=== PATIENT | male | born 1935 | race Caucasian/White ===

== ENCOUNTER 2020-08-15 07:48 | Day surgery (SDC) | payer OTHER ==
[~2020-08-15] VITALS: Ht 167.6 cm
[2020-08-15] VITALS (7 sets, daily range): BP systolic 115–153; BP diastolic 68–84
[~2020-08-15 07:48] MED LIST: ALLEGRA180 MG PO; ARTIFICIAL TEAR1510 OPHTHALMIC; ASPIRIN325 PO; BUTALB-APAP-CA1 EACH PO; FOLIC ACID1 MG PO; FUROSEMIDE 40 M40 MG PO; HYDROCODON-ACE1 EAC7 PO; IMODIUM A-D2 MG PO; LISINOPRIL-HCT1 EACH; METOPROLOL SUCC50 MG PO; MULTIVITAMINS PO; MUSCLE RUB CRE113 G1 TOP; POTASSIUM20 PO; PRAVASTATIN SOD40 MG PO; SENNA PLUS TAB1 EACH PO; SUPER B-COMPLE1 EAC2 PO; TRAZODONE HCL50 MG PO; TUSSIN COU15 MG/5 ML PO; TYLENOL325 M1 PO; VITAMIN B-1100 M2 PO; VITAMIN B125000 MCG PO; VITAMIN C 250250 MG PO; VITAMIN C500 M2 PO; VITAMIN D400 UNI1 PO; ZYRTEC10 M5 PO
--- NOTE | 2020-08-15 17:22 | NUR ---
ASSUMED CARE AT 1650. VSS. IV IS INTACT AND SHOW NO SIGNS OF REDNESS OR SWELLING. INCONTINENT. HOB IS ELEVATED. INCISION ON FACE IS DRY CLEAN AND INTACT. GUERA DRAIN IS INTACT. PT TENDS TO TRY TO PULL GUERA DRAIN AND WILL CONTINUE TO MONITOR. CALL LIGHT WITHIN REACH. FALL PRECAUTION . A&O X3. SCD HOSE ARE IN PLACE. 2 LITER OF OYXGEN. ICE PACK PLACED ON LEFT CHECK.
--- NOTE | 2020-08-16 04:30 | NUR ---
RECEIVED CARE OF THIS PATIENT AT 1900. ALERT AND ORIENTED TO PERSON, PLACE AND SITUATION AND SOMETIMES TIME. CONFUSED AT TIMES. INCISION ON L CHEEK WITH EDGES WELL APPROXIMATED. DRAINING SM AMOUNTS OF BLOOD. DOES OT LIKE IT TO BE TOUCHED. GUERA DRAIN BEHIND L EAR. ICE APPLIED TO CHEEK WHEN HE WANTS IT. PATIENT YELLING BECAUSE HE DOES NOT LIKE THIS HOSPITAL. C/O PAIN, MED GIVEN. WANTED IV OUT, EXPLAINED HE NEEDED IT. HAS TWO IV'S, ONE R WRIST AND THE OTHER R HAND.SLEPT OFF AND ON DURING NIGHT.
[2020-08-16 07:29] VITALS: BP 104/55
[2020-08-16 08:21] VITALS: BP 104/55
--- NOTE | 2020-08-16 08:35 | NUR ---
assumed care at 0700. pt is a&o x3-4. pt is very fussy. pt refused all medications except for pain medication for his headache. pt yelled and states that he has a right to refuse all medications after being explained the benefit of each pill. daughter called and spoken with her with his update. d/c today back to facility according to daughter. bp is 103 but pt is alert and awake. ice pack to face. HOB 30 degree. fall precaution. call light within reach. iv is d/c as pt refused to have iv on him. 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 scd hose are in place. will continue to monitor.
--- NOTE | 2020-08-16 10:35 | NUR ---
ASSESSMENT: CM REVIEWED CHART AND SPOKE WITH PATIENT. PT IS LTC RESIDENT AT [facility]. PT REPORTS THAT HE NORMALLY USES A WHEELCHAIR OR WALKER TO AMBULATE. PT HAD EXCISION OF CHEEK LESION AND IS STABLE TO DISCHARGE TODAY BACK TO FACILITY. CM SPOKE WITH HIPOLITO WRIGHT AT [facility] TO NOTIFY HER OF DISCHARGE TODAY AND FAXED ORDERS TO HER [phone] AND CONFIRMED THEY RECEIVED IT. TRANSPORTATION HAS BEEN ARRANGED FOR 1500. CM NOTIFIED PT, PTS DAUGHTER GOLDY, WELL BEDSIDE RN. BEDSIDE RN HAS THE CONTACT NUMBER FOR REPORT. CHART COPY WAS ORDERED. PT REPORTS NO FURTHER NEEDS FROM CM AT THIS TIME.
--- NOTE | 2020-08-16 11:45 | O ---
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 PROCEDURES PERFORMED: 1. Excision left cheek lesion, malignant, more than 5 cm. 2. Left superficial parotidectomy with facial nerve dissection and preservation. 3. Facial nerve monitoring x2 hours. 4. Left cheek adjacent tissue transfer flap reconstruction more than 15 cm2. ANESTHESIA: General. COMPLICATIONS: None. ESTIMATED BLOOD LOSS: 50 mL. SPECIMEN: Left cheek lesion and left superficial parotid gland. ASSISTANTS: None. INDICATIONS FOR THE PROCEDURE: The patient is an 85-year-old gentleman with an approximate 1-year history of a left cheek lesion that has been increasing in size. He was first seen by Dr. Noah Jones and referred to me for formal excision and evaluation for possible lymph node dissection versus parotidectomy. He was evaluated and the decision was made to move forward with the procedures as listed above after he and his daughter signing consent in the office. The size of the lesion was approximately 5 x 4 cm and full thickness. DESCRIPTION OF PROCEDURE: The patient was identified in the preoperative area before being transported to the operating room and placed supine on the operating table. At this point, general endotracheal anesthesia was induced and a timeout was called to ensure patient identity and procedure to be performed. [address] [address] OPERATIVE REPORT Name: STEVEN LOPES Room #: 436-P [facility].#: [id number] Admission: 08/15/20 Attend Phys: Jonathan Underwood MD Discharge: Date of : 35 Report #: [id number] First, the facial nerve monitor was setup and electrodes were placed in the left lateral superior brow and the left lower lip. These were taped into position and confirmed on the monitor to be working. Next, using the Neoprobe, I isolated the likely location of the sentinel lymph node, which was located within the left parotid gland. Therefore, no markings were made on the skin surface. At this point, the lesion was observed and skin markings were made leaving approximately 10-12 mm cuff of normal appearing skin around the periphery of the lesion. This was injected locally with 1% lidocaine with 1:100,000 epinephrine solution. In addition, a left modified Nicola incision was formed around the patient's left ear and again the skin was injected with 1% lidocaine with 1:100,000 epinephrine solution. At this point, the patient was then prepped and draped in the normal sterile fashion and the table was rotated 90 degrees. Starting first with the patient's lesion, a sharp skin incision was made with a #15 blade down to the subcutaneous plane. This lesion was marked at the 12 o'clock, 3 o'clock, 6 o'clock, and 9 o'clock positions with marking stitches and then sharply excised using a #15 blade scalpel and passed off for frozen section analysis. Hemostasis was achieved in the wound base with bipolar cautery. Turning attention then to the left parotid gland, the Nicola incision was made sharply with a #15 blade and hemostasis was achieved using a monopolar cautery. The dissection was continued down through the subcutaneous plane down to the level of this mass and a subcutaneous skin flap was raised anteriorly to the anterior border of the parotid gland. Next, the SMAS was incised separately and a SMAS flap was then formed. This again was elevated out to the anterior surface of the parotid gland. Next, the tragal pointer and sternocleidomastoid and posterior bellies of digastric were sharply dissected. This actually revealed the main trunk of the facial nerve extremely easily and very quickly. There was very little bleeding encountered. This was then followed in a standard fashion medially along the main trunk of the nerve and its upper and lower divisions. The soft tissue was elevated with a mosquito clamp and then divided using Harmonic scalpel at a setting of 4 and 6. This was performed along all nerve branches until the entire superficial lobe of the parotid gland was removed entirely and passed off for permanent specimen. There was a large pumping vessel noted just deep to the proximal portion of the upper branch. This was crossclamped, divided and tied with a 2-0 silk stitch. Hemostasis was further achieved using bipolar cautery. At this point, a round Telly a 15-Pu[place]ican drain was inserted through the skin of the postauricular area and then laid down into the wound bed and placed on bulb suction. This mass was then reapproximated using 3-0 Vicryl stitches followed by skin closure in the subcutaneous plane again using a 3-0 Vicryl along with a small amount of skin trimming and the skin was then reapproximated using running 4-0 chromic. This completed the left parotidectomy. Please note that the nerve branch stimulated throughout the entirety and there was no obvious damage to any of the nerve branches. Next, attention was turned back to the medial cheek lesion. At this point, the frozen section analysis had been performed and the margins were all clear of any invasive carcinoma. Therefore, no additional margins were needed [facility] [address] [place] [address] OPERATIVE REPORT Name: STEVEN LOPES Room #: 436-P [facility]..#: [id number] Admission: 08/15/20 Attend Phys: Jonathan Underwood MD Discharge: Date of : 35 Report #: [id number] to be taken. At this point, I decided to do a rotational flap based on the patient's left nasolabial fold and recruiting skin from the inferior aspect of the defect. This was injected locally with 1% lidocaine with 1:100,000 epinephrine solution and elevated in the subcutaneous plane down to approximately the level of the mandibular body. Extreme caution was taken to stay in the immediate subcutaneous plane. Hemostasis was achieved and the flap was rotated and advanced up into the patient's medial cheek defect with extreme ease. These deep layers were closed with 3-0 Vicryl sutures and again the skin edges were closed with 4-0 chromic in a running locking fashion. This completed the procedure. I was very pleased with the functional and cosmetic outcomes. The patient was reversed from anesthesia and transported to the PACU in stable condition having suffered no untoward event. DISPOSITION: The patient will be kept overnight for close postoperative monitoring and drain care. Anticipation is he will be discharged home sometime tomorrow back to his facility where he lives. Wound care will include daily cleaning 2-3 times a day and application of a thick emollient over the incisions. Additionally, the surgical drain will stay in place for this first week and can be removed at his first postoperative visit. They should perform drain care at least 3 times per day and record the output. He has been given prescriptions for antibiotics and for pain medication. He should take those as directed. I will see him next week for a postoperative check and drain removal. They may call our office with any issues. <ELECTRONICALLY SIGNED> By: Jonathan Underwood MD 08/16/20 1145 1520 1550 Jonathan Underwood MD /nt
--- NOTE | 2020-08-17 16:06 | PATH ---
[facility] [place] [address] PATHOLOGY RPT PROCEDURE Name: STEVEN LOPES Room #: DEP [facility]..#: [id number] Admission: 08/15/20 Date of : 35 Discharge: 08/16/20 Report #: [id number] Path Case #: [id number] [facility] Accession Number: [id number] . 01 Material submitted: . PART A: cheek - LEFT CHEEK LESION. Modifiers: left PART B: parotid gland - LEFT SUPERFICIAL PAROTID. Modifiers: left . 01 Clinical history: . SCC FACE PAROTIDECTOMY . 02 Frozen section diagnosis: . FROZEN SECTION DIAGNOSIS: (Radha Mahajan M.D.): . FSA1, FSA2, and FSA3: Skin, left cheek lesion, excision: - Negative for invasive carcinoma at margins on FS slides. - Deep margin fatty, grossly appears unremarkable. . These findings are discussed with Dr. Underwood in OR6 at [facility] and a written report is placed in the patient's chart. . Frozen sections performed at [facility], [address] [place] [address]. . . FROZEN SECTION GROSS DESCRIPTION: A. The specimen is received fresh from the OR labeled with the patient's name, and "left cheek lesion double long stitch 12:00, single long stitch 3:00, double short 6:00 and single short stitch 9:00" consists of an oriented oval excision of skin measuring 4 x 4 x 0.7 cm. There are sutures designated for margins as 12:00, 3:00, 6:00 and 9:00. The 12:00 to 3:00 margin is inked black, 3:00 to 6:00 is inked blue, 6:00 to 9:00 is inked orange and 9:00 to 12:00 is inked green. The deep margin is inked black. There is a central ulcerated lesion in the center of the specimen measuring approximately 2 x 2 cm. This lesion grossly appears widely free from the adjacent skin margins. At this point the 12:00 to 3:00, 3:00 to 6:00, 6:00 to 9:00 and 9:00 to 12:00 skin margins are shaved and submitted for frozen section as FSA1, FSA2, and FSA3. The frozen section remnants are submitted for permanent sections as A1, A2 and A3, respectively. The specimen is serially sectioned from superior (12:00 end) to the 6:00 end and the deep margin is grossly assessed at the request of Dr. Underwood. The remainder of the specimen is submitted in entirety for permanent sections only as A4 to A8. (IUV/db; 08/15/2020) IZV/LBQ . [address] [address] PATHOLOGY RPT PROCEDURE Name: STEVEN LOPES Room #: DEP [facility] Navin#: [id number] Admission: 08/15/20 Date of : 35 Discharge: 08/16/20 Report #: [id number] Path Case #: [id number] Diagnosis: A. Skin, left cheek, re-excisional biopsy: - INVASIVE SQUAMOUS CELL CARCINOMA COMPLETELY EXCISED. ([facility]/db; 08/16/2020) . B. Portion of parotid "left superficial parotid, partial parotidectomy": - One intraparotid lymph node with reactive changes. - The rest of the parotid reveals no diagnostic abnormalities. 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 02 Electronically signed: . Octaviano Crawley MD, Pathologist NPI- [id number] . 01 Gross description: . A. SEE FROZEN SECTION GROSS DESCRIPTION. . B. The specimen is received in formalin, labeled "Steven Lopes, left superficial parotid" and consists of a 20 g salivary gland measuring 5.6 x 4.8 x 2.0 cm. The surface shows focal disruption with focal cautery artifact. The external surface is inked black. It is sectioned to reveal a yellow parr parenchyma with no masses. There is focal hemorrhage measuring 1.6 x 0.6 cm. Explosives Worker sections to include all hemorrhage is submitted in B1-B6. (SDY; 08/16/2020) SYU/LBQ 08/16/2020 1019 Local . 02 Pathologist provided ICD-10: C44.329 . 02 CPT . 955272, 408430, 152773, 489056, 205761 Specimen Comment: A courtesy copy of this report has been sent to [phone] Specimen Comment: Report sent to Performed at: [address], [place], [place] [id number] MD Octaviano Crawley MD Phone: [phone] Performed at: [address] [id number] MD Stephie Mahajan MD Phone: [phone]
== END 2020-08-16 15:05 | disposition home or self-care (01) ==
LOC: TBA 07:48 → OR 07:48 → TBA 08:06 → OR 11:53 → 4S 16:45 → OR 08-16 15:05
PROVIDERS: ATTEND Otolaryngology
DX: C44.329 Squamous cell carcinoma of skin of other parts of face (principal); R59.0 Localized enlarged lymph nodes; I10 Essential (primary) hypertension; E78.00 Pure hypercholesterolemia, unspecified; F32.9 Major depressive disorder, single episode, unspecified; I73.9 Peripheral vascular disease, unspecified; K21.9 Gastro-esophageal reflux disease without esophagitis; Z98.890 Other specified postprocedural states; Z79.899 Other long term (current) drug therapy; Z87.891 Personal history of nicotine dependence; Z85.828 Personal history of other malignant neoplasm of skin
CPT/HCPCS: 50010; 50101; 50331; 50386; 50417; 50455; 51412; 52190; 52220; 52225; 56524; 56526; 56528; 57006; 62110; 62900; 70005